=== PATIENT | male | born 1995 | race Caucasian/White ===

== ENCOUNTER 2020-05-23 21:19 | Emergency (ER) ==
[~2020-05-23] VITALS: Ht 185.4 cm; Wt 113.4 kg
[2020-05-23 21:22] VITALS: BP_SYST 134; BP_SYST 144; BP_DIAS 80; BP_DIAS 81
--- NOTE | 2020-05-23 21:32 | ER.PDOC ---
General Chief Complaint: Requesting Medical Care Stated Complaint: L THUMB INJURY Time seen by MD: 21:25 Source: patient Exam Limitations: no limitations History of Present Illness Initial Comments 930 am today at work patient was wrenching pipes and got left thumb crushed when wrench slipped, he had blood underneath the nail bed on left thumb and his mom poked a hole in the left thumb nail and drained the blood, patient has full sensation and can flex and extend the thumb but is limited secondary to pain. Occurred: this morning Where: work Severity: moderate Context: crush Modifying Factors: pain on movement Allergies: Coded Allergies: No Known Allergies (Unverified , 08/29/13) Home Meds No Active Prescriptions or Reported Meds Past Medical History Medical History: no pertinent history Surgical History: no surgical history Social History Drug Use: none Review of Systems Constitutional: denies chills, denies fever Respiratory: denies cough Cardiovascular: denies chest pain Gastrointestinal: denies abdominal pain Genitourinary: denies pain Musculoskeletal: denies neck pain Skin: denies rash Psychiatric/Neurological: denies headache Physical Exam General Appearance: Alert, No Apparent Distress Wrist: nml inspection Neuro: sensation nml, motor nml Vascular: no vascular compromise Tendons: tendon function nml Forearm/Elbow/Arm: uninjured above wrist Skin: warm/dry Head/ENT: nml inspection Neck/Back: nml inspection, non-tender Resp/CVS: no resp distress, lungs clear Abdomen: non-tender Comments left thumb has small subungual hematoma there is contusion noted distal left thumb, patient has swelling noted also of the left thumb, neuro vasc intact, tendon function hard to assess as the swelling limits motion but patient seems to be able to flex and extend the left thumb, no other injury noted. Splinting Splinting : Pre-Made Type: Hand-Made Type: orthoglass Splint: thumb spica Pre-Proc Neuro Vasc Exam: normal Post-Proc Neuro Vasc Exam: normal Progress completed by nursing staff Results/Orders Results/Orders Orders - PADMINI ZHENG MD Xr Hand Lt (05/23/20 21:30) Vital Signs Date Time Temp Pulse Resp B/P (MAP) Pulse Ox O2 Delivery O2 Flow Rate FiO2 05/23/20 21:35 98.3 86 20 99 05/23/20 21:22 98.3 86 20 99 05/23/20 21:22 98.3 90 20 05/23/20 21:22 98.3 86 20 99 Progress Progress thumb spica orthoglass by nursing staff. patient placed on abx as had subungual hematoma drained by family at home. looked up patient on [place] [employer] Departure Time of Disposition: 21:51 Disposition: 01 HOME, SELF-CARE Impression: Primary Impression: Thumb fracture Condition: Stable Patient Instructions: Thumb Fracture Referrals: PCP,UNKNOWN (PCP) PRIMARY CARE PROVIDER PADMINI HSU MD Additional Instructions: call hand surgeon of your choice for follow up. Scripts No Active Prescriptions or Reported Meds Duration or Time Spent with Pa: 15 PADMINI ZHENG MD May 23, 2020 21:32
--- NOTE | 2020-05-23 21:59 | DIREP ---
PROCEDURE:XRAY HAND MIN 3 VW-LT COMPARISON:[facility], CR, XRAY HAND MIN 3 VW-LT, 01/31/2018, 04:24 PM. INDICATIONS:crush injury to left thumb FINDINGS: Three views of the left hand. There are comminuted fractures involving the distal rim of the distal tuft of the left 1st finger, thumb. There is also a nondisplaced linear fracture through the midportion and base of the left distal phalanx which is intra-articular at the interphalangeal joint of the thumb. No dislocation identified. No radiopaque foreign body. CONCLUSION: 1. Comminuted fractures involving the distal rim of the distal tuft of the left 1st finger, thumb. 2. Nondisplaced intra-articular fracture of the distal phalanx of the left 1st finger. Dictated by: Peg Haddad MD on 05/23/2020 at 09:56 PM
[2020-05-23 22:15] VITALS: BP 145/70
== END 2020-05-23 22:11 | disposition home or self-care (01) ==
LOC: ER 21:19
DX: S62.522A Displaced fracture of distal phalanx of left thumb, initial encounter for closed fracture (principal); W22.8XXA Striking against or struck by other objects, initial encounter; Y93.89 Activity, other specified; Y92.89 Other specified places as the place of occurrence of the external cause; Y99.0 Civilian activity done for income or pay
CPT/HCPCS: 29125; 99283; 73130-LT